=== PATIENT | female | born 1970 | race African-American/Black ===

== ENCOUNTER 2018-01-08 07:37 | Emergency (ER) | payer BC ==
[~2018-01-08] VITALS: Ht 167.6 cm; Wt 81.0 kg
[2018-01-08] MEDS ORDERED: KETOROLAC 60MG/2ML VIAL IM ONE (08:45)
[2018-01-08 08:53] LABS: KETONES URINE NEGATIVE (NEGATIVE); LEUKOCYTE ESTERASE URINE NEGATIVE (NEGATIVE); NITRITE URINE NEGATIVE (NEGATIVE); OCCULT BLOOD URINE 3+ (NEGATIVE); PROTEIN URINE TRACE (NEGATIVE); SPECIFIC GRAVITY URINE 1.021 (1.005-1.030)
[2018-01-08 08:58] LABS: CLARITY URINE HAZY (CLEAR); COLOR URINE YELLOW (YELLOW)
[2018-01-08 09:04] LABS: BASOPHILS % 0.7 % (0.0-2.0); EOSINOPHILS % 0.1 % (0.0-5.0); HEMOGLOBIN. 12.4 g/dL (12.0-16.0); LYMPHOCYTES % 10.9 % (20.0-50.0); MEAN CORPUSCULAR HEMOGLOBIN 28.6 pg (28.0-32.0); MEAN CORPUSCULAR VOLUME 85.3 fL (81.0-99.0); MEAN PLATELET VOLUME 8.4 fl (7.4-10.4); NEUTROPHILS % 84.3 % (40.0-76.0); PLATELET 386 x1000/uL (130-400); RED BLOOD CELL COUNT 4.33 mill/uL (4.2-5.4); RED CELL DISTRIBUTION WIDTH 12.8 % (11.6-14.6)
[2018-01-08 09:32] LABS: CHLORIDE 106 mEq/L (98-107)
[2018-01-08] MEDS ORDERED: TAMSULOSIN HCL 0.4MG SR CAPSULE PO ONE (10:45)
[2018-01-08 12:24] VITALS: BP 122/59
== END 2018-01-08 12:30 | disposition home or self-care (01) ==
LOC: ER 08:44
DX: N20.0 Calculus of kidney (principal); N39.0 Urinary tract infection, site not specified
CPT/HCPCS: 36415; 74176; 80053; 81003; 81025; 85025; 87086; 96372; 99285; J1885

== ENCOUNTER 2018-10-07 17:39 | Emergency (ER) | payer BC ==
[~2018-10-07] VITALS: Ht 167.6 cm; Wt 82.0 kg
[2018-10-07] MEDS ORDERED: KETOROLAC 15MG/ML VIAL IM ONE (20:00)
[2018-10-07 20:34] VITALS: BP 119/61
== END 2018-10-07 20:35 | disposition home or self-care (01) ==
LOC: ER 17:39
DX: S16.1XXA Strain of muscle, fascia and tendon at neck level, initial encounter (principal); M25.511 Pain in right shoulder; M54.9 Dorsalgia, unspecified; Z98.51 Tubal ligation status; V49.88XA Car occupant (driver) (passenger) injured in other specified transport accidents, initial encounter; Y93.89 Activity, other specified; Y92.89 Other specified places as the place of occurrence of the external cause; Y99.8 Other external cause status
CPT/HCPCS: 81025; 96372; 99283; J1885